=== PATIENT | male | born 1990 | race Caucasian/White ===

== ENCOUNTER 2017-07-17 22:09 | Emergency (ER) | payer BC ==
[2017-07-17] MEDS ORDERED: ACETAMINOPHEN 325 MG TABLET PO ONE (22:52)
[2017-07-17] MEDS ORDERED: ACETAMINOPHEN 325 MG TABLET ONE (22:54)
--- NOTE | 2017-07-17 23:01 | ERNOTE ---
Lower Extremity HPI - General Time Seen by Provider: 07/17/17 22:36 - Immun/Allergies/Home Medications Immunizations: IMMUNIZATION HX Immunizations Up to Date Yes Allergies/Adverse Reactions: Allergies Allergy/AdvReac Type Severity Reaction Status Date / Time minocycline Allergy Unknown Verified 07/17/17 22:15 Home Medications: HOME MEDICATIONS Dexlansoprazole [Dexilant] 60 mg PO DAILY 06/11/16 [Last Taken Unknown] Fexofenadine/Pseudoephedrine [Tammy-D 12 Hour Tablet] 1 each PO BID 06/11/16 [ Last Taken Unknown] Fluticasone Propionate [Flonase] 1 spray NS DAILY 06/11/16 [Last Taken Unknown] Ibuprofen [Motrin] 800 mg PO TID PRN #30 tablet 07/17/17 [Last Taken Unknown] Metoprolol Succinate 25 mg PO DAILY 07/17/17 [Last Taken Unknown] - Patient's Past Medical History Patient History - Medical: GERD, Other Patient History - Cardiac/Respiratory: Other Patient History - Cancer: No Hx of Cancer Patient History - Surgical Procedures: Cholecystectomy, ENT Patient History - Other: None - Social History Living Situations: home Abuse History: No History of abuse Psych History: No pertinent hx - Immunizations Immunizations Up to Date: Yes ED Progress - Vital Signs Vital Signs: Vital Signs 07/17/17 22:12 Temperature 36.4 C L Pulse Rate 110 H Respiratory 16 Rate Blood Pressure 124/81 O2 Sat by Pulse 99 Oximetry - Progress/Reassessment Chief Complaint: Foot Injury/Pain Departure Clinical Impression: Left ankle sprain Qualifiers: Encounter type: initial encounter Involved ligament of ankle: unspecified ligament Qualified Code(s): S93.402A - Sprain of unspecified ligament of left ankle, initial encounter - Departure Disposition: Home self-care Condition: Good Instructions: Ankle Sprain, Ankle Sprain, [id number] Referrals: Kt Tolbert MD [Primary Care Provider] - Prescriptions: Ibuprofen [Motrin] 800 mg PO TID PRN #30 tablet PRN Reason: Pain
[2017-07-17 23:53] VITALS: BP 120/70
== END 2017-07-17 23:45 | disposition home or self-care (01) ==
LOC: ER 22:09
PROC: 2W3RX1Z Immobilization of Left Lower Leg using Splint (ICD-10-PCS; principal; 2017-07-17)
DX: S93.402A Sprain of unspecified ligament of left ankle, initial encounter (principal); Y93.79 Activity, other specified sports and athletics; Y92.328 Other athletic field as the place of occurrence of the external cause